=== PATIENT | female | born 1960 | race Caucasian/White ===

== ENCOUNTER 2023-08-25 11:28 | Observation (INO) | payer OTHER ==
[2023-08-18 12:50] VITALS: BMI 47.8
[2023-08-25] MEDS ORDERED: Gabapentin 300 MG CAP ONE (11:58)
[2023-08-25] MEDS ORDERED: Acetaminophen 325 MG TAB ONE (11:59)
[2023-08-25] MEDS ORDERED: Dexamethasone 4 mg/ml Vial ONE (12:07)
[2023-08-25] MEDS ORDERED: Ropivacaine 0.5% HCl/PF (150 MG/30 ML VIAL) ONE (12:07)
[2023-08-25] MEDS ORDERED: Lidocaine 1% PF 5 ML VIAL ONE ×2 (12:08→13:23)
[2023-08-25] MEDS ORDERED: Ropivacaine 0.2% HCl/PF 0 ML ONE (12:08)
[2023-08-25] MEDS ORDERED: Ketorolac Tromethamine 30 MG (1 mL) VIAL ONE (12:14)
[2023-08-25] MEDS ORDERED: EPINEPHrine 1 MG/ML VIAL ONE ×2 (12:14→13:23)
[2023-08-25] MEDS ORDERED: Vancomycin 1 GM VIAL ONE (12:15)
[2023-08-25] MEDS ORDERED: Ropivacaine 0.2% HCl/PF 40 ML ONE ×2 (12:15→12:17)
[2023-08-25] MEDS ORDERED: Tranexamic Acid 1,000 MG/10 ML VIAL ONE (12:15)
[2023-08-25] MEDS ORDERED: cloNIDine PF 1,000 MCG/10 ML VIAL ONE (12:15)
[2023-08-25] MEDS ORDERED: fentaNYL 50 mcg/mL 1 mL Vial ONE ×2 (12:17→13:18)
[2023-08-25] MEDS ORDERED: Midazolam HCl 2 mg/2 ml Vial ONE ×2 (12:17→13:18)
[2023-08-25] MEDS ORDERED: Bupivacaine PF 0.5% 30 ML VIAL ONE ×2 (13:15→13:22)
[2023-08-25] MEDS ORDERED: CEFAZOLIN 2 GM VIAL ONE (13:16)
[2023-08-25] MEDS ORDERED: PROPOFOL 80 ML ONE (13:17)
[2023-08-25] MEDS ORDERED: Triamcinolone 40 MG/ML VIAL ONE (13:22)
[2023-08-25] MEDS ORDERED: Promethazine HCl 25 MG/ML VIAL IM PRN (13:32)
[2023-08-25] MEDS ORDERED: Ondansetron PF 4 MG/2 ML Vial IVP PRN (13:32)
[2023-08-25] MEDS ORDERED: HYDROcodone/Acetaminophen 10/325 mg Tablet PO PRN (13:32)
[2023-08-25] MEDS ORDERED: Acetaminophen 325 MG TAB PO PRN (13:32)
[2023-08-25] MEDS ORDERED: diphenhydrAMINE 25 MG CAP PO PRN (13:32)
[2023-08-25] MEDS ORDERED: Labetalol HCl 100 MG/20 ML VIAL ONE (13:58)
[2023-08-25] MEDS: Senokot S 8.6-50 MG TAB PO SCH (20:47)
[2023-08-25] MEDS: CEFAZOLIN 2 GM in Sodium Chloride 0.9% 100 ML IVPB SCH (20:48)
[2023-08-25] MEDS: Ferrous Gluconate 324 MG TAB PO SCH (20:48)
[2023-08-25] MEDS: Neomycin-Polymyxin 1 ML AMP FS SCH (20:51)
[2023-08-25] MEDS: Sodium Chloride 0.9% 1,000 ML IV SCH (20:51)
[2023-08-25] MEDS: Zolpidem Tartrate 5 MG TAB PO PRN (22:25)
[2023-08-26 04:31] LABS: Hematocrit 36.6 % (34.9-44.5); Hemoglobin 11.7 g/dL (12.0-15.5); Mean Corpuscular Hemoglobin 28.4 pg (27.0-33.0); Mean Corpuscular Volume 88.8 fl (81.6-98.3); Mean Platelet Volume 9.7 fl (7.4-10.4); Platelet Count 311 10x3/uL (150-450); Red Blood Cell (RBC) Count 4.12 10x6/uL (3.90-5.03); White Blood Cell (WBC) Count 14.8 10x3/uL (3.5-10.5)
[2023-08-26] MEDS: Enoxaparin 40 MG (0.4 mL) SYRINGE SC SCH (09:13)
[2023-08-26] MEDS: Multivitamin W/ Minerals 1 TAB PO SCH (09:13)
[2023-08-26] MEDS: HYDROcodone/Acetaminophen 10/325 mg Tablet PO PRN (09:14)
[2023-08-26 11:05] VITALS: TEMP 98.2
[2023-08-26 11:57] VITALS: BP 138/100
== END 2023-08-26 12:46 | disposition home or self-care (01) ==
LOC: CSHSDC 11:28 → CSHTELE 17:54
PROVIDERS: ADMIT Orthopaedic Surgery; ATTEND Orthopaedic Surgery
PROC: 0SRD0JZ Replacement of Left Knee Joint with Synthetic Substitute, Open Approach (ICD-10-PCS; principal; 2023-08-26)
DX: M17.12 Unilateral primary osteoarthritis, left knee (principal); M21.162 Varus deformity, not elsewhere classified, left knee; M24.562 Contracture, left knee; I10 Essential (primary) hypertension; Z88.5 Allergy status to narcotic agent; Z88.0 Allergy status to penicillin; Z79.899 Other long term (current) drug therapy; Z87.891 Personal history of nicotine dependence
CPT/HCPCS: 36415; 85027; A6198; C1776; J0171; J0665; J0735; J1100; J1650; J1885; J2250; J2704; J2795; J3010; J3301; J3370; J3490